=== PATIENT | male | born 1995 | race Caucasian/White ===

== ENCOUNTER 2025-04-17 10:44 | Emergency (ER) | payer BC, SELFPAY ==
[2025-04-17 10:54] VITALS: BP 120/83; PULSE 94; RESP 16; TEMP 35.9; O2SAT 100
--- NOTE | 2025-04-17 11:20 | ED.MALEGU ---
HPI - Male Genitourinary General Chief complaint: Urogenital-Male Stated complaint: Std Test Time Seen by Provider: 04/17/25 11:05 Source: patient and RN notes reviewed Mode of arrival: ambulatory Limitations: no limitations History of Present Illness HPI Narrative: Patient presents today complaining of 1 episode of a yellow discolored semen and some discomfort with ejaculation 3 days ago. He is also complaining of some very mild, constant pelvic pressure x1 week. Denies dysuria, hematuria, testicular pain, penile discharge, testicular or scrotal swelling or redness, fever. Denies any concerns for STI, but would like to be tested to rule out before he sees urology. He has made a request to see urology. Related Data Home Medications ?Medication ?Instructions ?Recorded ?Confirmed ?Last Taken ?Type No Home Medications 04/17/25 04/17/25 Unknown History Allergies Allergy/AdvReac Type Severity Reaction Status Date / Time No Known Allergies Allergy Verified 04/17/25 11:04 [facility] Comments At time of signature, I have reviewed and agree with nursing past medical, surgical, social and family history unless otherwise noted. Please see nursing chart for further information. There is no relevant family history pertinent to the presenting complaint Exam Narrative: GENERAL: Well-appearing, well-nourished, and in no acute distress. HEAD: Normocephalic, atraumatic. EYES: EOMI. No redness or drainage. Conjunctivae normal. ENT: Mucous membranes pink and moist. NECK: Normal AROM. CHEST: No respiratory distress. Clear to auscultation. HEART: Regular rate and rhythm. No murmur appreciated. ABDOMEN: Soft, nontender, nondistended, normal active bowel sounds. EXTREMITIES: Normal range of motion. No edema. SKIN: Warm, dry, no rash. Capillary refill normal. Normal skin turgor. NEURO: No focal deficits. Alert and oriented x3. Gait steady. PSYCH: Normal affect. No signs of depression or anxiety. Course Course Level of Care: Express Care Visit Vital Signs Vital signs: Vital Signs Temperature 96.7 F L 04/17/25 10:54 Pulse Rate 94 04/17/25 10:54 Respiratory Rate 16 04/17/25 10:54 Blood Pressure 120/83 04/17/25 10:54 Pulse Oximetry 100 04/17/25 10:54 Temperature 96.7 F L 04/17/25 10:54 Pulse Rate 94 04/17/25 10:54 Respiratory Rate 16 04/17/25 10:54 Blood Pressure 120/83 04/17/25 10:54 Pulse Oximetry 100 04/17/25 10:54 Reviewed MDM - Male Genitourinary MDM Narrative Medical decision making narrative: 30-year-old male patient presents today complaining of 1 episode of a yellow discolored semen and some discomfort with ejaculation 3 days ago. He is also complaining of some very mild, constant pelvic pressure x1 week. Denies concerns for STIs but would like to be checked anyway before he follows up with Urology. Exam is negative. Genital exam deferred. Urinalysis is negative. Culture pending. Urine sample sent for gonorrhea, chlamydia, and Trichomonas. Patient declines prophylactic antibiotics. He will follow-up with urology your PCP if all tests are negative. Vital signs stable. Differential Diagnosis Differential diagnosis: Likely urinary tract infection, urethritis and other (gonorrhea, chlamydia, trichomonas) Lab Data Attestation: I reviewed the patient's lab results. Labs: Lab Results 04/17/25 Range/Units 11:28 POC Urine Color Yellow POC Urine Clarity Clear POC Urine pH 5.5 POC Ur Specif Brohman 1.025 POC Urine Protein Negative (Negative) POC Ur Glucose (UA) Negative (Negative) POC Urine Ketones Negative (Negative) POC Urine Blood Negative (Negative) POC Urine Nitrite Negative (Negative) POC Urine Bilirubin Negative (Negative) POC Urine Urobilinogen 0.2 POC U Leukocyte Esteras Negative (Negative) Critical Care Time Critical Care Time Critical Care Time: No Discharge Plan Discharge Clinical Impression: Discolored semen Patient Disposition: Home Condition: Stable Additional Instructions: Your urinalysis sample at [facility] today was negative for a infection. Your urine sample has been sent off to test for gonorrhea, chlamydia, and trichomonas infections as well as a urine culture. These tests can take a few days to come back. You will be notified by telephone if any of your tests come back positive. If any of your tests come back positive you will need further treatment with antibiotics. If your tests come back negative and you are still experiencing symptoms, please follow-up with your PCP or urologist for further evaluation and treatment. If your symptoms worsen to include fever, abdominal pain, or back pain, please go to the hospital immediately. Patient Language: Estonian Prescriptions: No Action No Home Medications Follow-up/Referrals: PHYSICIAN,WIRELESS OPERATOR [Primary Care Provider, Internal Medicine] Time of Disposition: 11:19
[2025-04-17 11:30] LABS: EDUAAPPEAR Clear; EDUABILI Negative (Negative); EDUABLOOD Negative (Negative); EDUACOLOR1 Yellow; EDUAGLUCOSE Negative (Negative); EDUAKETONE Negative (Negative); EDUALEUKO Negative (Negative); EDUANITRATE Negative (Negative); EDUAPH 5.5; EDUAPROTEIN Negative (Negative); EDUASPGRAVITY 1.025; EDUAUROBILI 0.2
[2025-04-17 18:37] LABS: Trichomonas Vag PCR NOT DETECTED (NOT DETECTE)
== END 2025-04-17 11:22 | disposition home or self-care (01) ==
PROVIDERS: Emergency Provider Nurse Practitioner
DX: R86.8 Other abnormal findings in specimens from male genital organs (principal); Z11.3 Encounter for screening for infections with a predominantly sexual mode of transmission
CPT/HCPCS: 81003; 87086; 87491; 87591; 87661; 99203; G0463